=== PATIENT | male | born 1930 | race Caucasian/White ===

== ENCOUNTER 2017-01-18 12:12 | Emergency (ER) | payer OTHER ==
[~2017-01-18] VITALS: Ht 180.3 cm; Wt 86.2 kg
[2017-01-18 12:31] VITALS: BP_SYST 156; BP_SYST 193
[2017-01-18] MEDS ORDERED: BACITRACIN 1 GM OINT TP ONE (13:15)
[2017-01-18 13:32] VITALS: BP_SYST 156
== END 2017-01-18 13:32 | disposition home or self-care (01) ==
LOC: SED 12:12
DX: L02.01 Cutaneous abscess of face (principal); I10 Essential (primary) hypertension; J45.909 Unspecified asthma, uncomplicated; K21.9 Gastro-esophageal reflux disease without esophagitis; Z85.46 Personal history of malignant neoplasm of prostate; Z90.49 Acquired absence of other specified parts of digestive tract; Z88.0 Allergy status to penicillin
CPT/HCPCS: 99283

== ENCOUNTER 2019-04-13 15:36 | Emergency (ER) | payer OTHER ==
[~2019-04-13] VITALS: Ht 175.3 cm; Wt 86.2 kg
[2019-04-13 15:40] VITALS: BP_SYST 154
[2019-04-13] MEDS ORDERED: ASPIRIN 81 MG TAB.CHEW PO ONE (15:45)
[2019-04-13 16:08] LABS: BASOPHILS % (AUTO) 0.3 % (0.0-2.0); EOSINOPHILS # (AUTO) 0.1 K/uL (0.0-0.4); EOSINOPHILS % (AUTO) 0.4 % (0.0-4.0); HEMATOCRIT 33.9 % (36-54); HEMOGLOBIN 10.8 g/dL (14.0-18.0); LYMPHOCYTES # (AUTO) 0.9 K/uL (1.0-5.5); LYMPHOCYTES % (AUTO) 7.4 % (20.5-51.5); MEAN CORPUSCULAR HEMOGLOBIN 24 pg (27-31); MEAN CORPUSCULAR HGB CONC 32 % (32-36); MEAN CORPUSCULAR VOLUME 76 fL (79.0-98.0); MONOCYTES # (AUTO) 0.9 K/uL (0.0-1.0); MONOCYTES % (AUTO) 7.3 % (1.7-9.3); NEUTROPHILS # (AUTO) 10.3 K/uL (1.8-7.7); NEUTROPHILS % (AUTO) 84.6 % (40.0-70.0); PLATELET COUNT (AUTO) 206 K/uL (130-430); RED BLOOD CELL COUNT(AUTO) 4.45 MIL/uL (4.2-6.2); RED CELL DISTRIBUTION WIDTH 17.7 % (9.0-15.0); WHITE BLOOD COUNT (AUTO) 12.2 K/uL (4.8-10.8)
[2019-04-13 16:17] LABS: ANION GAP 11 (5-15); CALCIUM 8.2 mg/dL (8.4-11.0); CHLORIDE 97 mmol/L (98-107); CREATININE 1.13 mg/dL (0.55-1.30); GLUCOSE 149 mg/dL (70-99); SODIUM SERUM 132 mmol/L (136-145); UREA NITROGEN, BLOOD 25 mg/dL (8-21)
[2019-04-13 16:22] LABS: ALANINE AMINOTRANSFERASE 21 U/L (12-78); ALBUMIN 3.3 g/dL (3.4-4.8); ASPARTATE AMINOTRANSFERASE 17 U/L (10-37)
[2019-04-13] MEDS ORDERED: IOHEXOL 350 mgI/mL, 150 ML INFUS..BTL IV ONE (18:18)
[2019-04-13] MEDS ORDERED: ALBUTEROL SULFATE 0.083% 2.5 MG/3 ML VIAL.NEB INH ONE (19:30)
[2019-04-13] MEDS ORDERED: POTASSIUM CHLORIDE 20 MEQ TAB.PRT.SR PO ONE (19:30)
[2019-04-13] MEDS ORDERED: IPRATROPIUM BROM 0.5 MG/2.5 ML VIAL.NEB (ATROVENT) INH ONE (19:30)
[2019-04-13] MEDS ORDERED: VANCOMYCIN HCL 1,000 MG in NS 250 ML IV ONE (19:30)
[2019-04-13] MEDS ORDERED: VANCOMYCIN HCL 1000 MG/VIAL IV ONE (23:14)
[2019-04-14 00:41] VITALS: BP_SYST 143
== END 2019-04-14 00:41 ==
LOC: SED 15:36
DX: J18.9 Pneumonia, unspecified organism (principal); R07.89 Other chest pain; J45.909 Unspecified asthma, uncomplicated; K21.9 Gastro-esophageal reflux disease without esophagitis; I10 Essential (primary) hypertension; Z88.0 Allergy status to penicillin
CPT/HCPCS: 36415; 71045; 71275; 80053; 82550; 83880; 84484; 85025; 85379; 87040; 93005; 94640; 96365; 96367; 99285; J1956; J3370; J7613; Q9967

== ENCOUNTER 2019-07-01 09:37 | Emergency (ER) | payer OTHER ==
[~2019-07-01] VITALS: Ht 162.6 cm; Wt 65.8 kg
[2019-07-01 09:44] VITALS: BP_SYST 110
[2019-07-01] MEDS ORDERED: NACL 0.9% 1,000 ML IV SCH (09:54)
[2019-07-01] MEDS ORDERED: ONDANSETRON HCL 4 MG/2 ML VIAL IVP ONE (10:00)
[2019-07-01] MEDS ORDERED: MORPHINE 4 MG/ML INJ. SYRINGE IVP ONE (10:00)
[2019-07-01] MEDS ORDERED: PANTOPRAZOLE SODIUM 40 MG/VIAL (PROTONIX) IVP ONE (10:00)
[2019-07-01 10:28] LABS: BASOPHILS % (AUTO) 0.3 % (0.0-2.0); EOSINOPHILS % (AUTO) 0.1 % (0.0-4.0); HEMOGLOBIN 14.7 g/dL (14.0-18.0); LYMPHOCYTES % (AUTO) 21.9 % (20.5-51.5); MEAN CORPUSCULAR HEMOGLOBIN 26 pg (27-31); MEAN CORPUSCULAR HGB CONC 30 % (32-36); MEAN CORPUSCULAR VOLUME 85 fL (79.0-98.0); MONOCYTES # (AUTO) 0.2 K/uL (0.0-1.0); MONOCYTES % (AUTO) 5.5 % (1.7-9.3); NEUTROPHILS # (AUTO) 3.1 K/uL (1.8-7.7); NEUTROPHILS % (AUTO) 72.2 % (40.0-70.0); PLATELET COUNT (AUTO) 244 K/uL (130-430); RED BLOOD CELL COUNT(AUTO) 5.78 MIL/uL (4.2-6.2); RED CELL DISTRIBUTION WIDTH 22.2 % (9.0-15.0); WHITE BLOOD COUNT (AUTO) 4.4 K/uL (4.8-10.8)
[2019-07-01 10:37] LABS: ANION GAP 26 (5-15); CALCIUM 8.4 mg/dL (8.4-11.0); CHLORIDE 102 mmol/L (98-107); CREATININE 3.32 mg/dL (0.55-1.30); GLUCOSE 223 mg/dL (70-99); POTASSIUM 4.5 mmol/L (3.5-5.1); SODIUM SERUM 138 mmol/L (136-145); UREA NITROGEN, BLOOD 27 mg/dL (8-21)
[2019-07-01 10:45] LABS: ALANINE AMINOTRANSFERASE 17 U/L (12-78); ALBUMIN 2.9 g/dL (3.4-4.8); ASPARTATE AMINOTRANSFERASE 18 U/L (10-37); LIPASE 426 U/L (73-393); TOTAL BILIRUBIN 1.3 mg/dL (0.0-1.0)
[2019-07-01 10:50] VITALS: BP_SYST 0
[2019-07-01 11:15] LABS: INR 1.6 (0.80-1.20); PROTHROMBIN TIME 16.2 SECS (9.5-12.5)
== END 2019-07-01 10:50 | disposition expired ==
LOC: SED 09:37
DX: K92.2 Gastrointestinal hemorrhage, unspecified (principal); K63.1 Perforation of intestine (nontraumatic); R10.13 Epigastric pain; J45.909 Unspecified asthma, uncomplicated; K21.9 Gastro-esophageal reflux disease without esophagitis; I10 Essential (primary) hypertension; Z85.038 Personal history of other malignant neoplasm of large intestine; Z85.46 Personal history of malignant neoplasm of prostate; Z88.0 Allergy status to penicillin
CPT/HCPCS: 36415; 71045; 80053; 83690; 84484; 85025; 85610; 85730; 93005; 99285; J7030